=== PATIENT | female | born 1990 | race Caucasian/White ===

== ENCOUNTER 2017-10-31 13:52 | Emergency (ER) | payer MEDICAID ==
[~2017-10-31] VITALS: Ht 144.8 cm; Wt 45.4 kg
--- NOTE | 2017-10-31 14:05 | NUR ---
PT BIB [facility] WITH A C/O MISSING PERSON FROM [place], PT HAS MULT WOUNDS AND APPARENTLY MRSA POSITIVE. PT PLACED ON HOLD BY KARINA FOR GD DUE TO MRSA. PT TAKEN TO ROOM #6 AND IS AWAITING MD.
--- NOTE | 2017-10-31 14:15 | NUR ---
OFFICIAL/[employer] 5150 HOLD IN CHART.
[2017-10-31 14:16] LABS: BASOPHILS # (AUTO) 0.1 /CMM (0.0-0.2); BASOPHILS % (AUTO) 0.9 % (0.0-2.0); EOSINOPHILS % (AUTO) 0.4 % (0.0-6.0); HEMATOCRIT 34 % (33-45); HEMOGLOBIN 11.4 g/dL (11.5-14.8); LYMPHOCYTES # (AUTO) 2.4 /CMM (0.8-4.8); LYMPHOCYTES % (AUTO) 26.3 % (20.0-44.0); MEAN CORPUSCULAR HGB CONC 34 g/dl (31.0-36.0); MEAN CORPUSCULAR VOLUME 78 fL (82-100); MONOCYTES # (AUTO) 0.5 /CMM (0.1-1.30); MONOCYTES % (AUTO) 5.4 % (2.0-12.0); PLATELET COUNT (AUTO) 380 /CMM (150-450); RDW COEFFICIENT OF VARIATION 16.4 (11.5-15.0); RED BLOOD CELL COUNT(AUTO) 4.29 MIL/uL (4.0-5.2)
--- NOTE | 2017-10-31 14:17 | NUR ---
PT REC'D WARM WATER, FACE CLOTHS, AND TOWELS TO CLEAN UP. PT REC'D GRIPPER SOCKS.
[2017-10-31 14:32] LABS: CALCIUM, SERUM 8.9 mg/dL (8.5-10.1); CARBON DIOXIDE 29 mmol/L (21-32); CHLORIDE 104 mmol/L (98-107); CREATININE 0.7 mg/dL (0.6-1.3); GLUCOSE 100 mg/dL (74-106); POTASSIUM 3.6 mmol/L (3.5-5.1); SODIUM SERUM 140 mmol/L (136-145); UREA NITROGEN, BLOOD 15 mg/dL (7-18)
[2017-10-31 14:38] LABS: ACETAMINOPHEN < 10 ug/ml (10-30); ALANINE AMINOTRANSFERASE 35 U/L (12-78); ALBUMIN 3.5 g/dL (3.4-5.0); ALCOHOL, BLOOD < 3 mg/dL (0-0); ALKALINE PHOSPHATASE 70 U/L (46-116); ASPARTATE AMINOTRANSFERASE 25 U/L (15-37); BILIRUBIN,DIRECT 0.1 mg/dL (0.0-0.2); BILIRUBIN,TOTAL 0.2 mg/dL (0.2-1.0); SALICYLATE 5.6 mg/dL (2.8-20.0); TOTAL PROTEIN, SERUM 7.4 g/dL (6.4-8.2)
[2017-10-31 14:55] LABS: APPEARANCE,URINE Clear (CLEAR); BILIRUBIN,URINE Negative (NEGATIVE); BLOOD, URINE Negative Ery/uL (NEGATIVE); COLOR,URINE Yellow (YELLOW); KETONES,URINE Trace (NEGATIVE); LEUKOCYTE ESTERASE ,URINE Negative (NEGATIVE); NITRITE, URINE Negative (NEGATIVE); PROTEIN,URINE 30 mg/dl (NEGATIVE); UGLUCOSE Negative (NEGATIVE)
--- NOTE | 2017-10-31 15:03 | NUR ---
PT IS WASHING HERSELF WITH THE SUPPLIES GIVEN.
[2017-10-31 15:15] LABS: BACTERIA,URINE Rare /HPF (None Seen); MUCUS,URINE Moderate /LPF (None Seen); RBC,URINE NONE SEEN /HPF (0-2); SQUAMOUS EPITHELIAL CELL,UR Few /HPF (None Seen); WBC,URINE NONE SEEN /HPF (0-3)
--- NOTE | 2017-10-31 15:46 | NUR ---
PT IS IN THE ROOM STILL WASHING UP.
--- NOTE | 2017-10-31 16:32 | NUR ---
PT IS WAITING FOR GABRIELE KRISHNA LCSW TO ARRIVE.
--- NOTE | 2017-10-31 16:47 | NUR ---
PT REC'D JUICE AND JELLO. DINNER TRAY ORDERED.
--- NOTE | 2017-10-31 17:07 | NUR ---
CALLED NATHAN FOR [facility] AND SAID SHE WOULD BE HERE WITHIN THE HOUR.
--- NOTE | 2017-10-31 18:18 | NUR ---
FERNANDO EVANS ARRIVED AND REVIEWED PT'S CHART. FERNANDO EVANS, IS AT THE BEDSIDE. SPEAKING TO THE PT.
--- NOTE | 2017-10-31 18:58 | NUR ---
PT IS CALLING HER FAMILY WITH FERNANDO EVANS.
--- NOTE | 2017-10-31 19:42 | NUR ---
Patient discharged to home in stable condition. Written and verbal after care instructions given. Patient verbalizes understanding of instruction. PT IS NO LONGER ON A HOLD. VSS. PT AMBULATED OUT WITH A STEADY GAIT. PT REC'D A RX AND BUS TOKENS.
[2017-10-31 19:43] VITALS: BP 119/78
== END 2017-10-31 19:44 | disposition home or self-care (01) ==
LOC: ER 13:56
DX: F15.10 Other stimulant abuse, uncomplicated (principal); B95.8 Unspecified staphylococcus as the cause of diseases classified elsewhere; Z88.8 Allergy status to other drugs, medicaments and biological substances
CPT/HCPCS: 36415; 80048; 80076; 80305; 80329; 81001; 85025; 99285; A4606; G0480 ×2; Z7610; 81000-TC